=== PATIENT | male | born 1940 | race Caucasian/White ===

== ENCOUNTER 2016-08-20 13:34 | Inpatient (IN) | payer MEDICARE, BC ==
[~2016-08-20] VITALS: Ht 182.9 cm; Wt 98.0 kg
[~2016-08-20 13:34] MED LIST: ASPI-482 PO; DOCU100C5 PO; ESCI10TA PO; GLYB6TAB PO; IBUP200T77 PO; INSU100I13 SQ; PIOG45TA PO; SIMV40TA3 PO
[2016-08-20 15:21] VITALS: BP 140/66
[2016-08-20 15:45] VITALS: BP 140/66
[2016-08-20] MEDS ORDERED: NITROGLYCERIN SUBLINGUAL 0.4 MG BOTTLE OF 25. SL PRN (16:15)
[2016-08-20 16:20] LABS: BASO % 1 % (0-3); EOS % 1 % (0-3); HEMATOCRIT 37.6 % (39.0-53.0); HEMOGLOBIN 12.7 g/dL (13.0-17.5); LYMPH # 0.7 x10^3/uL (1.0-4.8); LYMPH % 14 % (24-48); MEAN CORPUSCULAR HEMOGLOBIN 31 pg (25-35); MEAN CORPUSCULAR HGB CONC 34 g/dL (31-37); MEAN CORPUSCULAR VOLUME 92 fL (79-100); MONO % 8 % (0-9); NEUT % 77 % (31-73); PLATELET COUNT 169 x10^3/uL (140-400); RED BLOOD COUNT 4.07 x10^6/uL (4.30-5.70); RED CELL DISTRIBUTION WIDTH 14.7 % (11.5-14.5); WHITE BLOOD COUNT 4.9 x10^3/uL (4.0-11.0)
--- NOTE | 2016-08-20 16:38 | PDOC2 ---
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 Reports that in the last 2 weeks he has been having intermittent chest pain. 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 He used hand tiller 4-5 times in the last 2 weeks and 2 of the times he had retrosternal chest pressure with SOA with one of which lasted for about an hour. Mainly his chest pain onset is with exertion. Denies any nausea or vomiting. No radiating pain to arms and no diaphoresis. He saw his PCP today and actually was having tolerable chest discomfort at that time and was given NTG x1 and got better. Denies any palpitations, passing out. Denies any VTE, CAD in the past. He actually had stress test and LHC 15 yrs ago and was told that his coronaries were normal. He has not had any cardiac testing since then. Reports also of tripping on his taylor yesterday hence his abrasion to both of his legs. He has DM2 in which his last A1C was 7.2 but his BG in AM is normal. He takes statin but no BP meds although he told me his readings are at high end. He does use aleve daily for his back pain but no symptoms of GERD. No prior hx of PUD or bleeding disorders PAST MEDICAL HISTORY Cardiovascular: Hyperlipidemia Pulmonary: No pertinent hx Heme/Onc: Cancer (Waldenstrom lymphoma treated with chemotherapy 8 yrs ago) Musculoskeletal: low back pain, Osteoarthritis Infectious disease: No pertinent hx ENT: Other (cataract) Renal/: No pertinent hx Endocrine: Diabetes (2) Dermatology: No pertinent hx PAST SURGICAL HISTORY Past Surgical History: Arthroscopy (RTC repair bilateral ), Cataract Removal, Other (LMD) SOCIAL HISTORY Smoke: No (remote) ALCOHOL: occassional Drugs: None Lives: with Family ALLERGIES ALLERGIES: Coded Allergies: No Known Drug Allergies (Unverified , 10/19/14) ROS Review of System 14 point ROS evaluated with pertinent positives noted per HPI PHYSICAL EXAM General: Alert, Oriented X3, Cooperative, No acute distress HEENT: Atraumatic, Mucous membr. moist/pink Lungs: Clear to auscultation, Normal air movement Heart: Regular rate (SR), Normal S1, Normal S2, Other (2/6 systolic murmur to LLS border) Abdomen: Soft, No tenderness Extremities: No cyanosis, Other (1-2+ bilateral LE pitting edema) Skin: No breakdown, Other (bilateral anterior calf abrasion from fall) Neuro: Normal speech, Sensation intact Psych/Mental Status: Mental status NL, Mood NL MUSCULOSKELETAL: Osteoarthritic changes both hands VITALS VITALS Vital Signs Date Time Temp Pulse Resp B/P (MAP) Pulse Ox O2 Delivery O2 Flow Rate FiO2 08/20/16 15:21 98.5 86 18 140/66 (90) 96 Room Air 98.5 ASSESSMENT/PLAN ASSESSMENT/PLAN 1. Chest pain: possible ACS. 2. DM2: Last A1C 7.2. 3. HLP: on statin at home 4. Hx of Waldenstrom lymphoma: treated with chemo about 8 yrs ago per pt. 5. Mechanical fall: Yesterday. small abrasion to bilateral LE, no traumatic injury otherwise Recommendations 1. Multiple labs pending including TSH, lipid panel, Troponin to trend 2. ASA. anticoagulation will be considered pending lab results 3. TTE, EKG, CXR 4. Ischemic workup tomorrow. NPO after midnight. Problems: CHRISTINE CALIX MD 08/20/16 1712: CARDIAC CONSULT ALLERGIES ALLERGIES: Coded Allergies: No Known Drug Allergies (Unverified , 10/19/14) ASSESSMENT/PLAN ASSESSMENT/PLAN Patient seen and examined. Agree with above nurse practitioner note. 75-year-old gentleman presenting with exertional angina that is relieved with nitroglycerin. On examination he has normal heart sounds. No significant edema was present. Labs pending. We will likely plan on coronary angiography tomorrow. Risks and benefits discussed with the patient. Problems: THALIA CERVANTES APRN August 20, 2016 16:37 CHRISTINE CALIX MD August 20, 2016 17:12
[2016-08-20 16:43] LABS: ALBUMIN 3.3 g/dL (3.4-5.0); ALBUMIN/GLOBULIN RATIO 0.8 (1.0-1.7); CALCIUM 10.5 mg/dL (8.5-10.1); CREATININE 1.1 mg/dL (0.7-1.3); GFR 65.1; POTASSIUM 4.1 mmol/L (3.5-5.1); TOTAL BILIRUBIN 0.4 mg/dL (0.2-1.0); TOTAL PROTEIN 7.5 g/dL (6.4-8.2)
[2016-08-20] MEDS ORDERED: ASPIRIN ENTERIC COATED 325 MG TABLET.DR. PO ONE (17:00)
--- NOTE | 2016-08-20 17:41 | CARD ---
APPROVED REPORT EXAM: Two-dimensional and M-mode echocardiogram with Doppler and color Doppler. Other Information Quality : Average Rhythm : NSR INDICATION Chest Pain 2D DIMENSIONS Left Atrium(2D)3.6 (1.6-4.0cm)IVSd1.2 (0.7-1.1cm) Aortic Root(2D)2.7 (2.0-3.7cm)LVDd4.1 (3.9-5.9cm) LVOT Diameter2.1 (1.8-2.4cm)PWd1.2 (0.7-1.1cm) LVDs2.7 (2.5-4.0cm)FS (%) 34.2 % SV47.5 mlLVEF(%)63.7 (>50%) Aortic Valve AoV Peak Eugene.172.4cm/sAoV VTI35.2cm AO Peak GR.11.9mmHgLVOT VTI 23.27cm AO Mean GR.8mmHg Mitral Valve MV E Oegypoqg47.4cm/sMV DECEL EOJJ714mg MV A Vlncodif656.6cm/sE/A Ratio0.9 MV A Dljwxeqx455dd TDI Lateral E' P. V6.44cm/sMedial E' P. V6.50cm/s E/Lateral E'15.0E/Medial E'14.8 Tricuspid Valve TR P. Waxnhduz175ud/sRAP HDLGRNMG7jhGy TR Peak Gr.96tyHvYTMD05qjPi LEFT VENTRICLE The left ventricle is normal size. There is borderline concentric left ventricular hypertrophy. Left ventricle systolic function is normal. The Ejection Fraction is 55-60%. There is grossly normal LV se gmental wall motion. Tissue Doppler imaging reveals mild left ventricular diastolic dysfunction. RIGHT VENTRICLE The right ventricle is normal size. The right ventricular systolic function is normal. ATRIA The left atrium size is normal. The right atrium size is normal. The interatrial septum is intact wit h no evidence for an atrial septal defect or patent foramen ovale as noted on 2-D or Doppler imaging. AORTIC VALVE The aortic valve is mildly calcified and not well visualized. Doppler and Color Flow revealed no sign ificant aortic regurgitation. There is no significant aortic valvular stenosis. MITRAL VALVE The mitral valve is normal in structure and function. There is no mitral valve stenosis. Doppler and Color Flow revealed trace mitral regurgitation. TRICUSPID VALVE The tricuspid valve is normal in structure and function. Doppler and Color Flow revealed trace tricus pid regurgitation. The PA pressure was estimated at 19 mmHg. There is no tricuspid valve stenosis. PULMONIC VALVE The pulmonic valve is not well visualized. Doppler and Color Flow revealed no pulmonic valvular regur gitation. There is no pulmonic valvular stenosis. GREAT VESSELS The aortic root is normal in size. The IVC is normal in size and collapses >50% with inspiration. PERICARDIAL EFFUSION There is no evidence of significant pericardial effusion. Critical Notification Critical Value: No <Conclusion> Left ventricle systolic function is normal. The Ejection Fraction is 55-60%. There is grossly normal LV segmental wall motion. No significant valvular disease. Technically difficult study
[2016-08-20 19:31] LABS: BILIRUBIN,URINE NEGATIVE (NEG); GLUCOSE,URINE 100 mg/dL (NEG); NITRITE,URINE NEGATIVE (NEG); PH,URINE 5.5; PROTEIN,URINE NEGATIVE (NEG-TRACE)
[2016-08-20 19:35] VITALS: BP 125/60
[2016-08-20 19:44] LABS: BACTERIA,URINE 0 /HPF (0-FEW); RBC,URINE 0 /HPF (0-2)
[2016-08-20] MEDS: INSULIN DETEMIR 300 UNITS/3 ML INSULN.PEN. SQ SCH (21:00)
[2016-08-20] MEDS: SIMVASTATIN 40 MG TABLET. PO SCH (21:00)
--- NOTE | 2016-08-20 21:11 | HP ---
ADMIT DATE: 08/20/2016 CHIEF COMPLAINT AND HISTORY OF PRESENT ILLNESS: This is a 75-year-old white male who is well known to me from followup in the office. The patient was seen in the office on the day of admission with a couple of weeks of chest pain that was exertional in nature, relieved by rest. He had been short of breath that was on a couple of occasions, but no other associated symptoms such as diaphoresis, nausea, or lightheadedness. 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 Sublingual nitroglycerin relieved it very quickly, and it was elected to admit him to the hospital for further workup of his chest pain. PAST MEDICAL HISTORY: Remarkable for diabetes mellitus, hyperlipidemia, Waldenstrom macroglobulinemia. He has had a prior rotator cuff repair. MEDICATIONS: Brought with the patient, listed on the computer and have been addressed. ALLERGIES: He has no known drug allergies. 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 He is , lives at home with his . He does not use drugs. FAMILY HISTORY: Noncontributory . REVIEW OF SYSTEMS: As mentioned above. PHYSICAL EXAMINATION: GENERAL: He is a well-developed, well-nourished, white male in no acute distress. VITAL SIGNS: Stable. He is afebrile. HEAD, EYES, EARS, NOSE, AND THROAT: Remarkable for glasses. NECK: Supple without bruit or thyromegaly. CHEST: Clear to auscultation and percussion. HEART: Regular rate and rhythm. No S3, S4, or murmur. ABDOMEN: Soft, nontender without hepatosplenomegaly or mass. EXTREMITIES: Without cyanosis, clubbing, or edema. NEUROLOGIC: He is intact. IMPRESSION: 1. Chest pain suspicious for incidents above. 2. Other problems above. PLAN: The patient has been admitted. Labs including troponin will be checked. Cardiology will be asked to see him. EKG will be obtained. Sublingual nitroglycerin will be given p.r.n. IV access will be obtained and the patient will be monitored, managed, and treated appropriately. MOJGAN GRUBER MD DR: Erik JOB#: [id number] / [id number]
[2016-08-20 23:10] VITALS: BP 149/74
[2016-08-20] MEDS ORDERED: IV NORMAL SALINE 1000ML BAG 1,000 ML IV ONE (23:55)
[2016-08-21] VITALS (13 sets, daily range): BP systolic 110–163; BP diastolic 60–85
[2016-08-21 06:31] LABS: CALCIUM 10.3 mg/dL (8.5-10.1); CHOLESTEROL/HDL RATIO 4.3; CREATININE 0.9 mg/dL (0.7-1.3); MAGNESIUM 2.1 mg/dL (1.8-2.4); POTASSIUM 4.3 mmol/L (3.5-5.1)
--- NOTE | 2016-08-21 07:29 | RAD ---
Chest, 2 views, 08/20/2016: History: Chest pain Comparison is made to a study from 06/24/2008. The heart size and pulmonary vascularity are normal. There is calcific plaquing of the aorta. There is a small nodular opacity projected over the left upper lobe. It is more prominent than on previous radiographs, although that could be due to technical factors.. A partially calcified nodule was seen in the left upper lobe on the 10/19/2014 CT study. No acute infiltrates are seen. There is no evidence of pleural fluid. Moderate spurring is present in the spine. IMPRESSION: 1. Possible enlarging left upper lobe pulmonary nodule. CT scanning is suggested for further evaluation. 2. No acute cardiopulmonary abnormality is detected.
--- NOTE | 2016-08-21 08:32 | PDOC ---
GENERAL General: vss and afebrile. awake and alert. small amount of chest pain since admit. troponin negative and rest lab decent. echo noted and ok. heart cath for today with plans to follow. Problems: VITAL SIGNS Vital Signs: Vital Signs Date Time Temp Pulse Resp B/P (MAP) Pulse Ox O2 Delivery O2 Flow Rate FiO2 08/21/16 07:00 97.9 74 18 145/70 (95) 97 Room Air 97.9 I & O I & O Intake and Output 08/21/16 07:00 Intake Total 670 ml Output Total 500 ml Balance 170 ml Intake Oral 300 ml IV Total 370 ml Output Urine Total 500 ml ALLERGIES Allergies: Allergies Coded Allergies Type Severity Reaction Last Updated Verified No Known Drug Allergies 10/19/14 No MEDS Medications: Current Medications Medications (Trade) Dose Ordered Sig/Christian Start Time Stop Time Status Last Admin Dose Admin Aspirin (Ecotrin) 325 mg 1X ONCE 08/20/16 17:00 08/20/16 17:01 DC 08/20/16 17:05 325 MG Docusate Sodium (Colace) 100 mg DAILY 08/21/16 09:00 Insulin Detemir (Levemir) 30 units QHS 08/20/16 21:00 Nitroglycerin (Nitrostat) 0.4 mg PRN Q5MIN PRN 08/20/16 16:15 Simvastatin (Zocor) 40 mg QHS 08/20/16 21:00 Sodium Chloride 1,000 ml @ 75 mls/hr 1X ONCE 08/20/16 23:55 08/21/16 13:14 08/21/16 00:15 75 MLS/HR LAB Lab: Laboratory Tests Test 08/20/16 16:10 08/20/16 17:00 08/20/16 17:18 08/20/16 20:48 White Blood Count 4.9 x10^3/uL (4.0-11.0) Red Blood Count 4.07 x10^6/uL (4.30-5.70) Hemoglobin 12.7 g/dL (13.0-17.5) Hematocrit 37.6 % (39.0-53.0) Mean Corpuscular Volume 92 fL (79-100) Mean Corpuscular Hemoglobin 31 pg (25-35) Mean Corpuscular Hemoglobin Concent 34 g/dL (31-37) Red Cell Distribution Width 14.7 % (11.5-14.5) Platelet Count 169 x10^3/uL (140-400) Neutrophils (%) (Auto) 77 % (31-73) Lymphocytes (%) (Auto) 14 % (24-48) Monocytes (%) (Auto) 8 % (0-9) Eosinophils (%) (Auto) 1 % (0-3) Basophils (%) (Auto) 1 % (0-3) Neutrophils # (Auto) 3.7 x10^3uL (1.8-7.7) Lymphocytes # (Auto) 0.7 x10^3/uL (1.0-4.8) Monocytes # (Auto) 0.4 x10^3/uL (0.0-1.1) Eosinophils # (Auto) 0.0 x10^3/uL (0.0-0.7) Basophils # (Auto) 0.0 x10^3/uL (0.0-0.2) Sodium Level 136 mmol/L (136-145) Potassium Level 4.1 mmol/L (3.5-5.1) Chloride Level 103 mmol/L (98-107) Carbon Dioxide Level 27 mmol/L (21-32) Anion Gap 6 (6-14) Blood Urea Nitrogen 22 mg/dL (8-26) Creatinine 1.1 mg/dL (0.7-1.3) Estimated GFR (Cockcroft-Gault) 65.1 BUN/Creatinine Ratio 20 (6-20) Glucose Level 186 mg/dL (70-99) Calcium Level 10.5 mg/dL (8.5-10.1) Total Bilirubin 0.4 mg/dL (0.2-1.0) Aspartate Amino Transf (AST/SGOT) 18 U/L (15-37) Alanine Aminotransferase (ALT/SGPT) 18 U/L (16-63) Alkaline Phosphatase 82 U/L (46-116) Troponin I Quantitative < 0.017 ng/mL (0.000-0.055) Total Protein 7.5 g/dL (6.4-8.2) Albumin 3.3 g/dL (3.4-5.0) Albumin/Globulin Ratio 0.8 (1.0-1.7) Thyroid Stimulating Hormone (TSH) 2.884 uIU/mL (0.358-3.74) Urine Collection Type Unknown Urine Color Yellow Urine Clarity Clear Urine pH 5.5 Urine Specific [place] 1.015 Urine Protein Negative mg/dL (NEG-TRACE) Urine Glucose (UA) 100 mg/dL (NEG) Urine Ketones (Stick) Negative mg/dL (NEG) Urine Blood Negative (NEG) Urine Nitrite Negative (NEG) Urine Bilirubin Negative (NEG) Urine Urobilinogen Dipstick 1.0 mg/dL (0.2 mg/dL) Urine Leukocyte Esterase Negative (NEG) Urine RBC 0 /HPF (0-2) Urine WBC 1-4 /HPF (0-4) Urine Bacteria 0 /HPF (0-FEW) Urine Mucus Mod /LPF Glucose (Fingerstick) 130 mg/dL (70-99) 129 mg/dL (70-99) Test 08/20/16 22:45 08/21/16 05:50 Troponin I Quantitative < 0.017 ng/mL (0.000-0.055) Sodium Level 140 mmol/L (136-145) Potassium Level 4.3 mmol/L (3.5-5.1) Chloride Level 106 mmol/L (98-107) Carbon Dioxide Level 25 mmol/L (21-32) Anion Gap 9 (6-14) Blood Urea Nitrogen 18 mg/dL (8-26) Creatinine 0.9 mg/dL (0.7-1.3) Estimated GFR (Cockcroft-Gault) 82.0 Glucose Level 63 mg/dL (70-99) Calcium Level 10.3 mg/dL (8.5-10.1) Magnesium Level 2.1 mg/dL (1.8-2.4) Triglycerides Level 70 mg/dL (0-150) Cholesterol Level 150 mg/dL (0-200) LDL Cholesterol, Calculated 101 mg/dL (0-100) VLDL Cholesterol, Calculated 14 mg/dL (0-40) Non-HDL Cholesterol Calculated 115 mg/dL (0-129) HDL Cholesterol 35 mg/dL (40-60) Cholesterol/HDL Ratio 4.3 MOJGAN GRUBER MD August 21, 2016 08:32
[2016-08-21] MEDS: DOCUSATE SODIUM 100 MG CAPSULE. PO SCH (08:54)
[2016-08-21] MEDS: ASPIRIN ENTERIC COATED 81 MG TABLET.DR. PO SCH (08:57)
--- NOTE | 2016-08-21 08:58 | EKG ---
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
[2016-08-21] MEDS ORDERED: IOHEXOL 350 MG/ML 100 ML VIAL. ONE (11:11)
[2016-08-21] MEDS ORDERED: LIDOCAINE 2% 20 ML VIAL. ONE (11:11)
[2016-08-21] MEDS ORDERED: NITROGLYCERIN 200 MCG/2 ML SYRINGE FOR CATH/VASC LAB. ONE (11:13)
[2016-08-21] MEDS ORDERED: MIDAZOLAM HCL/PF 2 MG/2 ML VIAL. ONE (11:13)
[2016-08-21] MEDS ORDERED: VERAPAMIL 5 MG/2 ML VIAL. ONE (11:13)
[2016-08-21] MEDS ORDERED: fentaNYL PF VIAL 100 MCG/2 ML VIAL ONE (11:14)
[2016-08-21] MEDS ORDERED: HEPARIN for IV BOLUS 10,000 UNIT/10 ML VIAL. ONE (11:14)
[2016-08-21] MEDS ORDERED: IOHEXOL 300 MG/ML 100ML VIAL. IART ONE (11:45)
[2016-08-21] MEDS ORDERED: NITROGLYCERIN 200 MCG/2 ML SYRINGE FOR CATH/VASC LAB. IART ONE (11:45)
[2016-08-21] MEDS ORDERED: LIDOCAINE 2% 20 ML VIAL. IJ ONE (11:45)
[2016-08-21] MEDS ORDERED: MIDAZOLAM HCL/PF 2 MG/2 ML VIAL. IV ONE (11:45)
[2016-08-21] MEDS ORDERED: HEPARIN for IV BOLUS 10,000 UNIT/10 ML VIAL. IART ONE (11:45)
[2016-08-21] MEDS ORDERED: VERAPAMIL 5 MG/2 ML VIAL. IART ONE (11:45)
[2016-08-21] MEDS ORDERED: fentaNYL PF VIAL 100 MCG/2 ML VIAL IV ONE (11:45)
[2016-08-21] MEDS ORDERED: HEPARIN for IV BOLUS 10,000 UNIT/10 ML VIAL. IV ONE (11:48)
[2016-08-21] MEDS ORDERED: TIROFIBAN 5MG -0.9% NS 100 ML IV ONE ×2 (11:52→11:57)
[2016-08-21] MEDS ORDERED: NITROGLYCERIN 200 MCG/2 ML SYRINGE FOR CATH/VASC LAB. ICAR ONE (12:00)
[2016-08-21] MEDS ORDERED: TICAGRELOR 90 MG TABLET. PO ONE (12:15)
[2016-08-21] MEDS ORDERED: TICAGRELOR 90 MG TABLET. ONE (12:18)
[2016-08-21] MEDS: SIMVASTATIN 40 MG TABLET. PO SCH (20:43)
[2016-08-21] MEDS: INSULIN DETEMIR 300 UNITS/3 ML INSULN.PEN. SQ SCH (20:51)
[2016-08-22 03:45] VITALS: BP 156/79
[2016-08-22 07:00] VITALS: BP 162/75
[2016-08-22] MEDS: ASPIRIN ENTERIC COATED 81 MG TABLET.DR. PO SCH (09:13)
[2016-08-22] MEDS: DOCUSATE SODIUM 100 MG CAPSULE. PO SCH (09:13)
[2016-08-22] MEDS ORDERED: TICAGRELOR 90 MG TABLET. PO SCH (10:00)
--- NOTE | 2016-08-22 10:44 | PDOC ---
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 MACHINE OPERATOR 08/22/16 1044: CARDIO Progress Notes Date and Time Date of Service 08/22/2016 Time of Evaluation 1030 Subjective Subjective: No Chest Pain, No shortness of breath, No Palpitations, No Dizziness Vitals Vitals Vital Signs Date Time Temp Pulse Resp B/P (MAP) Pulse Ox O2 Delivery O2 Flow Rate FiO2 08/22/16 08:00 Room Air 08/22/16 07:00 98.0 81 18 162/75 (104) 95 98.0 08/21/16 12:29 2.0 Weight Weight [ ] Input and Output Intake and Output Intake and Output 08/22/16 07:00 Intake Total 1200 ml Output Total 2975 ml Balance -1775 ml Intake Oral 1200 ml Output Urine Total 2975 ml Laboratory Labs Laboratory Tests Test 08/21/16 16:49 08/21/16 20:42 08/22/16 08:05 Glucose (Fingerstick) 139 mg/dL (70-99) 212 mg/dL (70-99) 112 mg/dL (70-99) Physical Exam HEENT: Neck Supple W Full Motion Chest: Symmetric LUNGS: Clear to Auscultation Heart: S1S2, RRR (SR with PACs), murmurs (2/6 systolic murmur to LLS border) Abdomen: Soft N/T Extremities: No Edema, No Calf Tenderness Neurology: alert, oriented, follow commands Other Exams right wrist arteriotomy site intact no swelling, neurovascular status intact Assessment Assessment 1. ACS: notable for unstable angina, S/P PCI/OSCAR to LAD POD#1. EF preserved, no significant valvular disease per TTE. 2. Arrhythmia: SB as low as 37, likely sleep induced vagal. Notable PVCs and PACs, currently HR 70-80s SR. 3. HTN: labile 4. HLP 5. DM2 Recommendations 1. Will arrange for event monitor. 2. Will hold BB for now and will reevaluate pending event monitor results. 3. Start on lisinopril. Home BP monitoring. Brilinta/ASA 4. Optimize statin therapy 5. Encouraged cardiac rehab. Post cath instruction, f/u in office in 4 weeks. CHRISTINE CALIX MD 08/22/16 1814: CARDIO Progress Notes Plan Plan Pt. seen and examined. No acute events Doing well this a.m. No chest pain Meds reviewed. Ok to dc today. Will f/u in the office in 4-5 weeks. thanks. THALIA CERVANTES APRN August 22, 2016 10:44 CHRISTINE CALIX MD August 22, 2016 18:14
[2016-08-22 11:00] VITALS: BP 158/76
[2016-08-22] MEDS ORDERED: LISINOPRIL 20 MG TABLET PO SCH (11:00)
[2016-08-22] MEDS ORDERED: LISINOPRIL 10 MG TABLET PO SCH (12:00)
[2016-08-22 12:35] VITALS: BP 158/76
[2016-08-22] MEDS ORDERED: TICA90TA PO (13:43)
[2016-08-22] MEDS ORDERED: LISI10TA2 PO (13:44)
--- NOTE | 2016-08-22 15:03 | PDOC ---
GENERAL General: see discharge summary. Problems: VITAL SIGNS Vital Signs: Vital Signs Date Time Temp Pulse Resp B/P (MAP) Pulse Ox O2 Delivery O2 Flow Rate FiO2 08/22/16 12:35 90 158/76 08/22/16 11:00 98.1 18 95 Room Air 98.1 08/21/16 12:29 2.0 I & O I & O Intake and Output 08/22/16 07:00 Intake Total 1200 ml Output Total 2975 ml Balance -1775 ml Intake Oral 1200 ml Output Urine Total 2975 ml ALLERGIES Allergies: Allergies Coded Allergies Type Severity Reaction Last Updated Verified No Known Drug Allergies 10/19/14 No MEDS Medications: Current Medications Medications (Trade) Dose Ordered Sig/Christian Start Time Stop Time Status Last Admin Dose Admin Aspirin (Ecotrin) 325 mg 1X ONCE 08/20/16 17:00 08/20/16 17:01 DC 08/20/16 17:05 325 MG Docusate Sodium (Colace) 100 mg DAILY 08/21/16 09:00 08/22/16 14:25 DC 08/22/16 09:13 100 MG Fentanyl Citrate (Fentanyl 2ml Vial) 100 mcg 1X ONCE 08/21/16 11:45 08/21/16 11:46 DC 08/21/16 12:29 50 MCG Heparin Sodium (Porcine) (Heparin Sodium) 4,000 unit 1X ONCE 08/21/16 11:48 08/21/16 12:10 DC 08/21/16 12:31 4,000 UNIT Heparin Sodium/ Sodium Chloride 1,000 unit 1X ONCE 08/21/16 11:45 08/21/16 11:46 DC 08/21/16 12:27 1,000 UNIT Insulin Detemir (Levemir) 30 units QHS 08/20/16 21:00 08/22/16 14:25 DC 08/21/16 20:51 30 UNITS Iohexol (Omnipaque 300 Mg/ml) 100 ml 1X ONCE 08/21/16 11:45 08/21/16 11:46 DC 08/21/16 12:30 138 ML Iohexol (Omnipaque 350 Mg/ml) 100 ml STK-MED ONCE 08/21/16 11:11 08/21/16 11:12 DC Lidocaine HCl 20 ml 1X ONCE 08/21/16 11:45 08/21/16 11:46 DC 08/21/16 12:28 2 ML Lisinopril (Prinivil) 10 mg DAILY 08/22/16 12:00 08/22/16 14:25 DC 08/22/16 12:35 10 MG Midazolam HCl (Versed) 2 mg 1X ONCE 08/21/16 11:45 08/21/16 11:46 DC 08/21/16 12:29 2 MG Nitroglycerin (Nitroglycerin) 200 mcg 1X ONCE 08/21/16 12:00 08/21/16 12:10 DC 08/21/16 12:29 200 MCG Nitroglycerin (Nitrostat) 0.4 mg PRN Q5MIN PRN 08/20/16 16:15 08/22/16 14:25 DC Simvastatin (Zocor) 40 mg QHS 08/20/16 21:00 08/22/16 14:25 DC 08/21/16 20:43 40 MG Sodium Chloride 1,000 ml @ 75 mls/hr 1X ONCE 08/20/16 23:55 08/21/16 13:14 DC 08/21/16 00:15 75 MLS/HR Ticagrelor (Brilinta) 90 mg BID 08/22/16 10:00 08/22/16 14:25 DC 08/22/16 09:53 90 MG Tirofiban/Sodium Chloride 100 ml @ 0 mls/hr 1X ONCE 08/21/16 11:57 08/21/16 12:10 DC 08/21/16 12:32 18.5 MLS/HR Verapamil HCl (Verapamil) 2.5 mg 1X ONCE 08/21/16 11:45 08/21/16 11:46 DC 08/21/16 12:28 2.5 MG LAB Lab: Laboratory Tests Test 08/21/16 16:49 08/21/16 20:42 08/22/16 08:05 08/22/16 10:39 Glucose (Fingerstick) 139 mg/dL (70-99) 212 mg/dL (70-99) 112 mg/dL (70-99) 169 mg/dL (70-99) MOJGAN GRUBER MD August 22, 2016 15:02
--- NOTE | 2016-08-22 18:09 | CARD ---
APPROVED REPORT The patient was brought electively to the cardiac catheterization lab. A timeout was performed confi rming the patient's name, date of , procedure, and site of procedure. All necessary personnel w ere wearing the appropriate protective equipment and radiation monitor devices. After explaining the risks and benefits of the procedure and alternatives, informed consent was obtained. (See nursing no louie for medications administered). The right wrist was sterilely prepped and draped in the usual fas hion. The right wrist was infiltrated with 1 mL of 2% lidocaine for subcutaneous anesthesia. A 6 Fr ench Terumo glide sheath was inserted into the right radial artery without difficulty. Right and lef t coronary angiography was performed using a 6Fr TIG 4.0 catheter. Left ventricular end diastolic pr essure was obtained with a pigtail catheter and pullback was performed after left ventriculography. All catheter exchanges and advancements were performed over a guidewire. At case completion the [facility] t radial sheath was removed and a Terumo radial band was applied with 13 ml of air. The patient tole rated the procedure well and there were no immediate complications. HEMODYNAMICS: LVEDP 19 mm Hg No gradient on LV to aortic pullback. LEFT VENTRICULOGRAM: Deferred due to known EF of 55% CORONARY ANGIOGRAPHY: LM is a large caliber vessel with normal angiographic appearance. LAD is a large caliber diffusely calcified vessel with a proximal 40% stenosis, followed by a mid 70% stenosis. D1 is a small caliber vessel with normal angiographic appearance. LCx is a moderate caliber dominant vessel with normal angiographic appearance. OM1 is a moderate caliber vessel with normal angiographic appearance. LPDA is a small to moderate caliber vessel with normal angiographic appearance. RCA is a small caliber caliber vessel with normal angiographic appearance. INTERVENTIONAL TECHNIQUE: Heparin and tirofiban was used for antiocagulation. Through a 6F EBU 3.5 guide catheter, a 0.014'' Vo lcano Verrata pressure wire was advanced to the distal LAD. An iFR was measured at 0.81 (Positive). T herefore, the lesion was then ballooned with a Trek 2.5/12 at 14 danyel then stented with a 3.25/18 Xien ce OSCAR at 16 danyel. Post-PCI angiography revealed excellent stent expansion and TU 3 flow. The iFR re peat measurement was normalized to 0.94. The patient was given Ticagrelor at case completion. 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 Successful PCI of the mid LAD with implantation of a Xience 3.25/18 OSCAR. ASA + Ticagrelor for 1 full year High dose statin therapy and risk factor modification.
--- NOTE | 2016-08-22 20:51 | DS ---
DATE OF DISCHARGE: 08/22/2016 PRIMARY DIAGNOSIS: New-onset angina pectoralis. ADDITIONAL DIAGNOSES: Coronary artery disease with stenting of LAD lesion, longstanding diabetes mellitus, Waldenstrom macroglobulinemia, and hypertension. CHIEF COMPLAINT AND HISTORY OF PRESENT ILLNESS: This 75-year-old white male is well known to me from followup in the office. He was seen on the day of admission with a couple of weeks of just not feeling the best and some exertional chest pain. There had been a couple of episodes of this that had been associated with shortness of breath but no other symptoms. He received relief with sublingual nitroglycerin in the office on the day of admission for chest discomfort that had been persistent at that point in time for several hours. He was admitted to the hospital for the same. SUMMARY OF STAY: The patient was admitted. Troponin was negative. Rest of lab was essentially unremarkable. He was taken for cardiac catheterization on the morning of 08/19/2016. He had an LAD stents placed with a critical lesion there. Post-stent, the patient felt much better, better energy that he had in some time and the chest discomfort he was having was gone. Brilinta and lisinopril were added to his regimen by Cardiology with them feeling. He was ready for discharge then on 08/22/2016 and this was accomplished. DISPOSITION: The patient is discharged to home. He is discharged on ADA diet. Activity as tolerated, office in 1 week. DISCHARGE MEDICATIONS: Listed on the medical record and have been addressed. MOJGAN GRUBER MD DR: MIGUELITO/vickey JOB#: [id number] / [id number]
[2016-08-23] MEDS ORDERED: LISINOPRIL 20 MG TABLET PO SCH ×2 (09:00)
== END 2016-08-22 14:00 | disposition home or self-care (01) | DRG 247 ==
LOC: 2 NORTH 14:17
PROVIDERS: ADMIT Family Medicine; ATTEND Family Medicine
PROC: 027034Z Dilation of Coronary Artery, One Artery with Drug-eluting Intraluminal Device, Percutaneous Approach (ICD-10-PCS; principal; 2016-08-21)
PROC: 4A023N7 Measurement of Cardiac Sampling and Pressure, Left Heart, Percutaneous Approach (ICD-10-PCS; 2016-08-21)
PROC: B2151ZZ Fluoroscopy of Left Heart using Low Osmolar Contrast (ICD-10-PCS; 2016-08-21)
PROC: B2111ZZ Fluoroscopy of Multiple Coronary Arteries using Low Osmolar Contrast (ICD-10-PCS; 2016-08-21)
DX: I20.0 Unstable angina (principal); E11.9 Type 2 diabetes mellitus without complications; E78.5 Hyperlipidemia, unspecified; I10 Essential (primary) hypertension; S80.812A Abrasion, left lower leg, initial encounter; S80.811A Abrasion, right lower leg, initial encounter; I49.3 Ventricular premature depolarization; W19.XXXA Unspecified fall, initial encounter; Z85.72 Personal history of non-Hodgkin lymphomas; Z92.21 Personal history of antineoplastic chemotherapy; Z98.61 Coronary angioplasty status; Y93.89 Activity, other specified; Y92.89 Other specified places as the place of occurrence of the external cause; Y99.8 Other external cause status
CPT/HCPCS: 36415; 71020; 80048; 80053; 80061; 81001; 82947; 83735; 84443; 84484; 85027; 92928; 93005; 93306; 93458; 93571; C1725; C1769; C1874; C1887; C1892; J1815; J2250; J3010; J3490; J7030; Q9967; J3246

== ENCOUNTER → 2017-12-05 | Outpatient (CLI) | payer MEDICARE ==
[~2017-12-05] MED LIST changes: +DOCU100C28 PO; -DOCU100C5 PO; -ESCI10TA PO; +ESCITALOPRAM OX10 MG PO; +LISI10TA2 PO; -PIOG45TA PO; +PIOG45TA62 PO; +TICA90TA PO
--- NOTE | 2017-12-05 14:08 | CARD ---
MR#: [id number] Date of Study: 12/05/2017 Ordering Physician: CHRISTINE CALIX, Referring Physician: CHRISTINE CALIX, Tech: ZELDA Atkinson APPROVED REPORT EXAM: Two-dimensional and M-mode echocardiogram with Doppler and color Doppler. Other Information Quality : AverageHR: 81bpm INDICATION Cardiac Disease: CAD 2D DIMENSIONS Left Atrium(2D)3.0 (1.6-4.0cm)IVSd1.2 (0.7-1.1cm) Aortic Root(2D)3.0 (2.0-3.7cm)LVDd5.2 (3.9-5.9cm) LVOT Diameter2.3 (1.8-2.4cm)PWd1.2 (0.7-1.1cm) LVDs3.4 (2.5-4.0cm)FS (%) 34.8 % SV81.3 mlLVEF(%)63.6 (>50%) Aortic Valve AoV Peak Eugene.175.4cm/sAoV VTI42.7cm AO Peak GR.12.3mmHgLVOT Peak Eugene.86.9cm/s LVOT VTI 18.98cmAO Mean GR.8mmHg BRIGITTE (VMAX)1.42xp4OTC (VTI)1.87cm2 Mitral Valve MV E Eliwitih63.6cm/sMV DECEL [id number] MV A Nublcbzi230.9cm/sMV UBA66nr E/A Ratio0.9MVA (PHT)2.77cm2 TDI E/Lateral E'10.5E/Medial E'10.4 Pulmonary Valve PV Peak Haripeai350.9cm/sPV Peak Grad.5mmHg Tricuspid Valve TR P. Guisivkq071dl/sRAP ILXNBGWE6qfYk TR Peak Gr.86buIoIBOD33pwQj LEFT VENTRICLE The left ventricle is normal size. There is mild concentric left ventricular hypertrophy. The left ve ntricular systolic function is normal and the ejection fraction is within normal range. Left ventricu lar ejection fraction is 55-60% There is normal LV segmental wall motion. The left ventricular diasto lic function and filling is normal for age. RIGHT VENTRICLE The right ventricle is normal size. The right ventricular systolic function is normal. ATRIA The left atrium size is normal. The right atrium size is normal. The interatrial septum is intact wit h no evidence for an atrial septal defect or patent foramen ovale as noted on 2-D or Doppler imaging. AORTIC VALVE The aortic valve is mildly thickened but opens well. Doppler and Color Flow revealed no significant a ortic regurgitation. There is no significant aortic valvular stenosis. There is no aortic valvular ve getation. MITRAL VALVE The mitral valve is thickened but opens well. There is no evidence of mitral valve prolapse. There is no mitral valve stenosis. Doppler and Color Flow revealed no mitral valve regurgitation noted. TRICUSPID VALVE The tricuspid valve leaflets are thickened , but open well. Doppler and Color Flow revealed trace to mild tricuspid regurgitation. There is no tricuspid valve prolapse or vegetation. There is no tricusp id valve stenosis. PULMONIC VALVE The pulmonic valve is not well visualized. Doppler and Color Flow revealed no pulmonic valvular regur gitation. There is no pulmonic valvular stenosis. GREAT VESSELS The aortic root is normal in size. The IVC is normal in size and collapses >50% with inspiration. PERICARDIAL EFFUSION There is no pleural effusion. There is no evidence of significant pericardial effusion. Critical Notification Critical Value: No <Conclusion> The left ventricle is normal size. The left ventricular systolic function is normal and the ejection fraction is within normal range. Left ventricular ejection fraction is 55-60% There is mild concentric left ventricular hypertrophy. There is no significant aortic valvular stenosis. Doppler and Color Flow revealed no significant aortic regurgitation. Doppler and Color Flow revealed no mitral valve regurgitation noted. Doppler and Color Flow revealed trace to mild tricuspid regurgitation. Signed by : Costa Rojas MD Electronically Approved : 12/05/2017 14:07:56
== END | disposition home or self-care (01) ==
LOC: ECHO 12:29
PROVIDERS: ATTEND Internal Medicine Cardiovascular Disease
DX: I25.10 Atherosclerotic heart disease of native coronary artery without angina pectoris (principal); I36.1 Nonrheumatic tricuspid (valve) insufficiency; I10 Essential (primary) hypertension; E11.9 Type 2 diabetes mellitus without complications; E78.5 Hyperlipidemia, unspecified; Z85.72 Personal history of non-Hodgkin lymphomas; Z92.21 Personal history of antineoplastic chemotherapy
CPT/HCPCS: 93306

== ENCOUNTER → 2020-07-07 | Outpatient (CLI) | payer MEDICARE ==
[~2020-07-07] MED LIST changes: +LISI10TA16 PO; -LISI10TA2 PO; +SIMV40TA18 PO; -SIMV40TA3 PO
--- NOTE | 2020-07-07 10:55 | RAD ---
MR#: [id number] Date of Study: 07/07/2020 Ordering Physician: CHRISTINE CALIX, Referring Physician: CHRISTINE CALIX, Tech: APPROVED REPORT Patient Location: OUT-PATIENT Exam Type: Ankle to Brachial Index Indications Claudication: Risk Factors Hypertension Diabetes Pressures/Indices RightABI LeftABI Brachial 454ydTt2.1Brachial 012shEn2.2 Ankle(PT) 167mmHgAnkle(PT) 175mmHg Ankle(DP) 167mmHgAnkle(DP) 168mmHg Findings Normal bilateral BE Critical Notification Critical Value: No <Conclusion> 1. Normal bilateral BE as noted above. Signed by : Christine Calix, Electronically Approved : 07/07/2020 10:55:25
--- NOTE | 2020-07-07 10:56 | RAD ---
MR#: [id number] Date of Study: 07/07/2020 Ordering Physician: CHRISTINE CALIX, Referring Physician: CHRISTINE CALIX, Tech: APPROVED REPORT Patient Location : OUT-PATIENT Indications Lower Extremity Pain : Findings Grayscale images of the bilateral saphenofemoral junctions are grossly unremarkable. The right great saphenous vein measures 4.3 mm and the left great saphenous vein measures 3.8 mm. Bilateral greater and lesser saphenous veins did not show any evidence of reflux. Critical Notification Critical Value: No <Conclusion> 1. Negative for reflux in the bilateral greater and lesser saphenous veins Signed by : Christine Calix, Electronically Approved : 07/07/2020 10:56:27
--- NOTE | 2020-07-07 11:03 | RAD ---
MR#: [id number] Date of Study: 07/07/2020 Ordering Physician: CHRISTINE CALIX, Referring Physician: CHRISTINE CALIX, Tech: APPROVED REPORT Patient Location: OUT-PATIENT Laterality:Bilateral Indications Bruit Risk Factors Hypertension: Diabetes Doppler Spectral Velocity Analysis Right Left pCCA 85/12 cm/spCCA 74/13 cm/s mCCA 92/17 cm/smCCA 83/16 cm/s dCCA 88/17 cm/sdCCA 120/17 cm/s ECA 81/ cm/sECA 107/ cm/s pICA 65/9 cm/spICA 108/16 cm/s Leonidas 64/15 cm/smICA 132/16 cm/s dICA 63/12 cm/sdICA 110/26 cm/s ICA/CCA 0.71ICA/CCA 1.78 Findings Grayscale images of the bilateral common carotid vessels demonstrate moderate diffuse plaque. Spectral waveforms on the right internal carotid artery demonstrate normal velocities and waveforms. Normal ICA to CCA ratios. Overall 0 to less than 50% stenosis On the left side there is likely moderate stenosis involving the mid internal carotid artery although the diastolic velocities are fairly low suggestive overall of 0 to less than 50% stenosis. ICA to C CA ratios are also within normal limits. Bilateral vertebral velocities are antegrade and within normal limits. Critical Notification Critical Value: No <Conclusion> 1. No significant bilateral carotid occlusive disease Signed by : Christine Calix, Electronically Approved : 07/07/2020 11:02:41
--- NOTE | 2020-07-07 11:06 | RAD ---
MR#: [id number] Date of Study: 07/07/2020 Ordering Physician: CHRISTINE CALIX, Referring Physician: CHRISTINE CALIX, Tech: APPROVED REPORT Patient Location: OUT-PATIENT Indications Claudication: Risk Factors Hypertension Diabetes VELOCITY AND DOPPLER WAVEFORM ANALYSIS RIGHT cm/secWaveformSeverity LEFT cm/secWaveform Severity pCFA 111.0BiphasicpCFA 94.0Biphasic Prof Fem Art. 68.0BiphasicProf Fem Art. 63.0Biphasic Fem Art Prox. 97.0BiphasicFem Art Prox. 86.0Biphasic Fem Art Mid. 92.0BiphasicFem Art Mid. 86.0Biphasic Fem Art Dist. 82.0BiphasicFem Art Dist. 118.0Biphasic Pop Art(Fossa) 92.0BiphasicPop Art(AK) 85.0Biphasic NETWORK STRATEGIST Prox. 49.0BiphasicPTA Prox. 64.0Biphasic NETWORK STRATEGIST Dist. 83.0BiphasicPTA Dist. 76.0Biphasic Per Art Dist.43.0BiphasicPer Art Dist.47.0Biphasic SHELL Prox. 63.0BiphasicATA Prox. 61.0Biphasic DPA 11MonophasicDPA 22Biphasic Findings Grayscale images of the bilateral lower extremity arterial vessels demonstrates mild to moderate diff use atherosclerosis. Overall waveforms are mostly biphasic except for the bilateral dorsalis pedis v essels which demonstrate decreased velocities and likely moderate to severe diffuse disease. There i s otherwise three-vessel runoff below the knee. No focal high-grade stenosis is identified. Critical Notification Critical Value: No <Conclusion> 1. No significant bilateral lower extremity arterial disease with three-vessel runoff bilaterally. Signed by : Christine Calix, Electronically Approved : 07/07/2020 11:06:37
--- NOTE | 2020-07-07 15:49 | CARD ---
MR#: [id number] Date of Study: 07/07/2020 Ordering Physician: SAMIR CALIX, Referring Physician: SAMIR CALIX, Tech: Luly Guardado [facility] APPROVED REPORT EXAM: Two-dimensional and M-mode echocardiogram with Doppler and color Doppler. Other Information Quality : AverageHR: 77bpm Rhythm : NSR INDICATION Cardiac Disease: CAD RISK FACTORS Hypertension Hyperlipidemia Diabetes 2D DIMENSIONS RVDd2.7 (2.9-3.5cm)Left Atrium(2D)4.7 (1.6-4.0cm) IVSd1.3 (0.7-1.1cm)LVDd4.6 (3.9-5.9cm) PWd1.4 (0.7-1.1cm)LVDs2.6 (2.5-4.0cm) FS (%) 44.8 %SV75.7 ml LVEF(%)76.1 (>50%) Aortic Valve AoV Peak Eugene.228.8cm/sAoV VTI53.5cm AO Peak GR.20.9mmHgLVOT Peak Eugene.105.1cm/s AO Mean GR.12mmHg Mitral Valve MV E Vuxjouyw306.7cm/sMV DECEL GOEE740uj MV A Rnehuqgg584.6cm/sE/A Ratio0.8 Pulmonary Valve PV Peak Cddufzxz980.0cm/s Tricuspid Valve TR P. Alfkiraf738lz/sTR Peak Gr.28mmHg LEFT VENTRICLE The left ventricle is normal size. There is mild to moderate concentric left ventricular hypertrophy. The left ventricular systolic function is normal and the ejection fraction is within normal range. E stimated ejection fraction 55-60%. There is normal LV segmental wall motion. Transmitral Doppler flow pattern is Grade I-abnormal relaxation pattern. RIGHT VENTRICLE The right ventricle is normal size. There is normal right ventricular wall thickness. The right ventr icular systolic function is normal. ATRIA The left atrium size is normal. The right atrium size is normal. The interatrial septum is intact wit h no evidence for an atrial septal defect or patent foramen ovale as noted on 2-D or Doppler imaging. AORTIC VALVE The aortic valve is calcified with restricted leaflet motion. Doppler and Color Flow revealed no sign ificant aortic regurgitation. There is no significant aortic valvular stenosis. MITRAL VALVE The mitral valve is normal in structure and function. There is no evidence of mitral valve prolapse. There is no mitral valve stenosis. Doppler and Color-flow revealed mild mitral regurgitation. TRICUSPID VALVE The tricuspid valve is normal in structure and function. Doppler and Color Flow revealed trace tricus pid regurgitation. Estimated PAP 31 mmHg. There is no tricuspid valve stenosis. PULMONIC VALVE Doppler and Color Flow revealed trace pulmonic valvular regurgitation. There is no pulmonic valvular stenosis. GREAT VESSELS The aortic root is normal in size. The IVC is normal in size and collapses >50% with inspiration. PERICARDIAL EFFUSION There is no evidence of significant pericardial effusion. Critical Notification Critical Value: No <Conclusion> The left ventricular systolic function is normal and the ejection fraction is within normal range. E stimated ejection fraction 55-60%. There is normal LV segmental wall motion. Signed by : Samir Calix, Electronically Approved : 07/07/2020 15:48:45
== END ==
LOC: US 06:51
PROVIDERS: ATTEND Internal Medicine Cardiovascular Disease
DX: I08.0 Rheumatic disorders of both mitral and aortic valves (principal); I65.23 Occlusion and stenosis of bilateral carotid arteries; I25.10 Atherosclerotic heart disease of native coronary artery without angina pectoris; I70.203 Unspecified atherosclerosis of native arteries of extremities, bilateral legs; R09.89 Other specified symptoms and signs involving the circulatory and respiratory systems
CPT/HCPCS: 93306; 93880; 93922; 93925; 93970

== ENCOUNTER → 2021-07-13 | Outpatient (CLI) | payer MEDICARE ==
--- NOTE | 2021-07-13 18:11 | CARD ---
MR#: [id number] Date of Study: 07/13/2021 Ordering Physician: CHRISTINE CALIX, Referring Physician: CHRISTINE CALIX, Tech: Scout Bowles [facility] APPROVED REPORT EXAM: Two-dimensional and M-mode echocardiogram with Doppler and color Doppler. Other Information Quality : AverageHR: 70bpm Rhythm : NSR INDICATION Cardiac Disease: CAD RISK FACTORS Hyperlipidemia Diabetes 2D DIMENSIONS Left Atrium(2D)5.1 (1.6-4.0cm)IVSd1.3 (0.7-1.1cm) Aortic Root(2D)3.3 (2.0-3.7cm)LVDd4.3 (3.9-5.9cm) LVOT Diameter2.1 (1.8-2.4cm)PWd1.2 (0.7-1.1cm) LA Boecmm12 (18-58mL)LVDs2.8 (2.5-4.0cm) FS (%) 33.8 %SV51.4 ml LVEF(%)63.0 (>50%) Aortic Valve AoV Peak Eugene.204.1cm/sAoV VTI51.5cm AO Peak GR.16.7mmHgLVOT Peak Eugene.88.2cm/s LVOT VTI 20.89cmAO Mean GR.11mmHg BRIGITTE (VMAX)1.36bg5DWH (VTI)1.39cm2 Mitral Valve MV E Dbuupvod47.0cm/sMV DECEL JSHT465sp MV A Kazodqcq948.9cm/sMV GAM74ov E/A Ratio0.8MVA (PHT)3.03cm2 TDI E/Lateral E'13.5E/Medial E'13.5 Pulmonary Valve PV Peak Mfmwqojh054.2cm/sPV Peak Grad.4mmHg Tricuspid Valve TR P. Svqnvtdi645un/sTR Peak Gr.27mmHg Pulmonary Vein S1 Slqdlhkv30.4cm/sD2 Oaeavmpv42.2cm/s LEFT VENTRICLE The left ventricle is normal size. There is mild concentric left ventricular hypertrophy. The left ve ntricular systolic function is normal. The ejection fraction is estimated at 55 to 60%. There is norm al LV segmental wall motion. Transmitral Doppler flow pattern is Grade I-abnormal relaxation pattern. No left ventricle thrombus noted on this study. There is no ventricular septal defect visualized. Th ere is no left ventricular aneurysm. There is no mass noted in the left ventricle. RIGHT VENTRICLE The right ventricle is normal size. There is normal right ventricular wall thickness. The right ventr icular systolic function is normal. ATRIA The left atrium is mildly dilated. The right atrium size is normal. The interatrial septum is intact with no evidence for an atrial septal defect or patent foramen ovale as noted on 2-D or Doppler imagi ng. AORTIC VALVE The aortic valve is moderately calcified. Doppler and Color Flow revealed no significant aortic regur gitation. There is no significant aortic valve stenosis. There is no aortic valvular vegetation. MITRAL VALVE The mitral valve is thickened but opens well. There is no evidence of mitral valve prolapse. There is no mitral valve stenosis. Doppler and Color-flow revealed mild mitral regurgitation. TRICUSPID VALVE The tricuspid valve is normal in structure and function. Doppler and Color Flow revealed trace tricus pid regurgitation. There is no tricuspid valve prolapse or vegetation. There is no tricuspid valve st enosis. PULMONIC VALVE The pulmonary valve is normal in structure and function. Doppler and Color Flow revealed no pulmonic valvular regurgitation. There is no pulmonic valvular stenosis. GREAT VESSELS The aortic root is normal in size. The ascending aorta is normal in size. The pulmonary artery is nor mal. The IVC is normal in size and collapses >50% with inspiration. PERICARDIAL EFFUSION There is no pleural effusion. There is no evidence of significant pericardial effusion. Critical Notification Critical Value: No <Conclusion> The left ventricular systolic function is normal. The ejection fraction is estimated at 55 to 60%. There is normal LV segmental wall motion. Transmitral Doppler flow pattern is Grade I-abnormal relaxation pattern. Mild mitral regurgitation. Trace tricuspid regurgitation. There is no evidence of significant pericardial effusion. Signed by : Damien Franklin, Electronically Approved : 07/13/2021 18:11:07
== END ==
LOC: ECHO 09:00
PROVIDERS: ATTEND Internal Medicine Cardiovascular Disease
DX: I08.0 Rheumatic disorders of both mitral and aortic valves (principal); I25.10 Atherosclerotic heart disease of native coronary artery without angina pectoris
CPT/HCPCS: 93306; C8929